=== PATIENT | male | born 1990 | race Caucasian/White ===

== ENCOUNTER 2016-07-06 11:35 | Emergency (ER) | payer OTHER ==
[~2016-07-06] VITALS: Ht 172.7 cm; Wt 72.7 kg
[~2016-07-06 11:35] MED LIST: FLEXERIL 1010 MG/TAB PO; NO HOME MEDICATIONS; NORCO 325 MG-51 TAB PO
[2016-07-06 11:37] VITALS: BP 139/70; TEMP 98.4
[2016-07-06] MEDS ORDERED: AMOXICILLIN 8751 TAB PO (17:05)
[2016-07-06] MEDS ORDERED: NORCO 325 MG-51 TAB PO ×2 (17:18→18:29)
[2016-07-06 18:36] VITALS: PULSE 80
== END 2016-07-06 18:35 | disposition home or self-care (01) ==
LOC: COL.ER 11:35
DX: S61.412A Laceration without foreign body of left hand, initial encounter (principal); L02.512 Cutaneous abscess of left hand; W22.8XXA Striking against or struck by other objects, initial encounter; Y92.009 Unspecified place in unspecified non-institutional (private) residence as the place of occurrence of the external cause; Z23 Encounter for immunization
CPT/HCPCS: J0295; J2405; J3010; J7030

== ENCOUNTER 2021-06-22 23:16 | Emergency (ER) | payer OTHER ==
[~2021-06-22] VITALS: Ht 172.7 cm; Wt 75.0 kg
[~2021-06-22 23:16] MED LIST changes: +AMOXICILLIN 8751 TAB PO
[2021-06-22 23:24] VITALS: TEMP 98
[2021-06-23 00:07] LABS: BASO % 0.2 % (0.0-2.0); GRAN # 13.1 K/mm3 (1.4-6.5); GRAN % 75.7 % (42.2-75.2); HEMATOCRIT 43.3 % (42.0-52.0); HEMOGLOBIN 15.2 g/dl (13.5-18.0); LYMPH # 2.8 K/mm3 (1.2-3.4); LYMPH % 16.1 % (20.0-51.0); MEAN CELL VOLUME 80 fl (80.0-100.0); MEAN CORPUSCULAR HEMOGLOBIN 28 pg (27-31); MEAN CORPUSCULAR HGB CONC 35 g/dl (33.0-37.0); MEAN PLATELET VOLUME 11.8 fl (7.4-10.4); MONO # 1.3 K/mm3 (0.1-0.6); MONO % 7.7 % (1.7-9.3); PLATELET COUNT 333 K/mm3 (130-400); REDCELL DISTRIBUTION WIDTH-CV 13.1 % (11.5-14.5)
[2021-06-23 00:15] LABS: ALANINE AMINOTRANSFERASE 18 U/L (0-55); ALBUMIN 5.2 gm/dL (3.5-5.0); ALKALINE PHOSPHATASE 59 U/L (40-150); ANION GAP 14 mmol/L (7-16); AST,SGOT 28 U/L (5-34); BILIRUBIN,TOTAL 0.9 mg/dL (0.2-1.2); BLOOD UREA NITROGEN 21 mg/dL (9-21); CALCIUM 9.6 mg/dL (8.4-10.2); CARBON DIOXIDE 20 mmol/L (22-29); CHLORIDE 104 mmol/L (98-107); CREATININE, serum 1.34 mg/dL (0.72-1.25); GLUCOSE 107 mg/dL (70-99); POTASSIUM 4.4 mmol/L (3.5-4.5); SODIUM 138 mmol/L (136-145); TOTAL PROTEIN 8.1 gm/dL (6.2-8.1)
[2021-06-23 00:26] LABS: TROPONIN-I < 0.010 ng/mL (0.00-0.033)
[2021-06-23] MEDS ORDERED: DOXYCYCLINE HY100 MG PO (01:08)
[2021-06-23 01:13] VITALS: BP 135/73; PULSE 78
[2021-06-23] MEDS ORDERED: AMOXICILLIN 8751 TAB PO (15:54)
[2021-06-23] MEDS ORDERED: ZOFRAN ODT4 MG PO (15:56)
== END 2021-06-23 01:13 | disposition home or self-care (01) ==
LOC: COL.ER 23:16
PROVIDERS: Physician Assistant
DX: R07.89 Other chest pain (principal); D72.829 Elevated white blood cell count, unspecified; Z20.822 Contact with and (suspected) exposure to COVID-19
CPT/HCPCS: J7030

== ENCOUNTER 2021-06-23 10:59 | Emergency (ER) | payer OTHER ==
[~2021-06-23] VITALS: Ht 172.7 cm; Wt 72.7 kg
[~2021-06-23 10:59] MED LIST changes: +DOXYCYCLINE HY100 MG PO
[2021-06-23 11:07] VITALS: TEMP 98
[2021-06-23 11:34] LABS: BASO # 0.1 K/mm3 (0.0-0.2); BASO % 0.6 % (0.0-2.0); EOS # 0.1 K/mm3 (0.0-0.7); EOS % 0.9 % (0.0-4.0); GRAN # 7.5 K/mm3 (1.4-6.5); GRAN % 64.3 % (42.2-75.2); HEMOGLOBIN 13.8 g/dl (13.5-18.0); LYMPH % 25.6 % (20.0-51.0); MEAN CELL VOLUME 84 fl (80.0-100.0); MEAN CORPUSCULAR HEMOGLOBIN 28 pg (27-31); MEAN CORPUSCULAR HGB CONC 34 g/dl (33.0-37.0); MEAN PLATELET VOLUME 11.8 fl (7.4-10.4); MONO % 8.3 % (1.7-9.3); PLATELET COUNT 309 K/mm3 (130-400); RED BLOOD COUNT 4.86 M/mm3 (4.20-5.60); REDCELL DISTRIBUTION WIDTH-CV 13.2 % (11.5-14.5)
[2021-06-23 12:17] LABS: COLLECTION METHOD CLEAN CATCH
[2021-06-23 12:19] LABS: ALBUMIN 4.4 gm/dL (3.5-5.0); BILIRUBIN,TOTAL 0.8 mg/dL (0.2-1.2); CALCIUM 8.5 mg/dL (8.4-10.2); CREATININE, serum 1.05 mg/dL (0.72-1.25); POTASSIUM 4.3 mmol/L (3.5-4.5); TOTAL PROTEIN 7.1 gm/dL (6.2-8.1)
[2021-06-23 12:25] LABS: PH 6 (5-8); SQUAMOUS EPITHELIAL 0-2 /hpf (0-10); URINE APPEARANCE Clear (CLEAR/HAZY); URINE BACTERIA Rare /hpf (NONE SEEN); URINE BILIRUBIN Negative (NEGATIVE); URINE BLOOD Negative (NEGATIVE); URINE COLOR Yellow (YELLOW); URINE GLUCOSE Negative (NEGATIVE); URINE KETONE Negative (NEGATIVE); URINE LEUKOCYTE ESTERASE Negative (NEGATIVE); URINE NITRATE Negative (NEGATIVE); URINE PROTEIN(semi-quant) Negative (NEGATIVE); URINE RBC 0-2 /hpf (0-2); URINE UROBILINOGEN Negative (NEGATIVE)
[2021-06-23] MEDS ORDERED: AMOXICILLIN 8751 TAB PO (15:54)
[2021-06-23] MEDS ORDERED: ZOFRAN ODT4 MG PO (15:56)
[2021-06-23 16:47] VITALS: BP 111/73
[2021-06-23 17:00] VITALS: PULSE 64
== END 2021-06-23 17:04 | disposition home or self-care (01) ==
LOC: COL.ER 10:59
PROVIDERS: Emergency Medicine
DX: J43.9 Emphysema, unspecified (principal); E87.2 Acidosis
CPT/HCPCS: J2543; J3370; J7050; J7120; Q9967